=== PATIENT | female | born 1985 | race Caucasian/White ===

== ENCOUNTER 2018-08-07 15:40 | Emergency (ER) | payer MEDICAID ==
[~2018-08-07] VITALS: Ht 160 cm; Wt 81.8 kg
[2018-08-07 16:00] VITALS: BP 127/61
[2018-08-07] MEDS ORDERED: LIDOCAINE 1% 500 MG/50 ML VIAL INJ SCH (17:15)
[2018-08-07] MEDS ORDERED: LIDOCAINE MPF 1% - 5 mL VIAL 5 ML ONE ×2 (17:29→17:34)
[2018-08-07 18:37] VITALS: BP 125/78
== END 2018-08-07 18:28 | disposition home or self-care (01) ==
LOC: MED 15:40
DX: G44.209 Tension-type headache, unspecified, not intractable (principal); M62.830 Muscle spasm of back; M62.838 Other muscle spasm
CPT/HCPCS: 20553; 81002; 81025; 99283; J2001

== ENCOUNTER 2021-12-20 08:42 | Emergency (ER) | payer MEDICAID ==
[~2021-12-20] VITALS: Ht 154.9 cm; Wt 92.1 kg
[2021-12-20 08:44] VITALS: BP 91/78
--- NOTE | 2021-12-20 08:50 | NUR ---
PATIENT AMBULATED TO BED 4.
--- NOTE | 2021-12-20 09:06 | NUR ---
36/F PRESENTS TO ED WITH C/O LEFT WRIST PAIN X1 WEEK. PATIENT DENIES RECENT INJURY OR TRAUMA, STATES SHE WOKE UP WITH THE PAIN. PATIENT REPORTS PAIN HAS BEEN WORSENING AND WORSENS WITH USE OF FINGERS OR MOVEMENT OF WRIST. PATIENT REPORTS TAKING IBUPROFEN, LAST DOSE AT 1AM. NO SWELLING OR DEFORMITY NOTED TO WRIST, REPORTS 8/10 SHOOTING SHARP PAIN. DENIES NUMBNESS OR TINGLING.
[2021-12-20] MEDS ORDERED: IBUPROFEN 600 MG TAB PO ONE (09:20)
--- NOTE | 2021-12-20 09:46 | NUR ---
LEFT THUMB SPICA VELCRO SPLINT APPLIED TO PATIENTS LEFT WRIST. PMSC'S ASSESSED PRIOR AND S/P PLACEMENT, PT TOLERATED WELL.
[2021-12-20] MEDS ORDERED: IBUP-2213 PO (10:03)
[2021-12-20] MEDS ORDERED: DICL100G5 TP (10:03)
[2021-12-20 10:11] VITALS: BP 91/78
--- NOTE | 2021-12-20 10:11 | NUR ---
Patient discharged with v/s stable. Written and verbal after care instructions ABOUT WRIST SPRAIN given and explained. Patient alert, oriented and verbalized understanding of instructions. Ambulatory with steady gait. All questions addressed prior to discharge. ID band removed. Patient advised to follow up with PMD. Rx of DICLOFENAC SODIUM AND IBUPROFEN given. Patient educated on indication of medication including possible reaction and side effects. Opportunity to ask questions provided and answered.
== END 2021-12-20 10:11 | disposition home or self-care (01) ==
LOC: MED 08:42
DX: S63.502A Unspecified sprain of left wrist, initial encounter (principal); Z79.1 Long term (current) use of non-steroidal anti-inflammatories (NSAID); X58.XXXA Exposure to other specified factors, initial encounter; Y92.89 Other specified places as the place of occurrence of the external cause; Y93.89 Activity, other specified; Y99.8 Other external cause status
CPT/HCPCS: 73110; 99283